=== PATIENT | female | born 1935 | race Caucasian/White ===

== ENCOUNTER 2021-11-11 09:03 | Day surgery (SDC) | payer MEDICARE ==
[2021-11-11] VITALS (11 sets, daily range): BP systolic 95–121; BP diastolic 51–85
[~2021-11-11] VITALS: Ht 152.4 cm; Wt 61.4 kg
[~2021-11-11 09:03] MED LIST: CLIN-91 PO; DEC4T PO; HYDR12.597 PO; OMEP40CA21 PO; POTA-188 PO; SYN0.088T PO; [UNRECOGNIZED DRUG - CODE] PO
[2021-11-11] MEDS ORDERED: cefazolin/dext.iso 2gm/50ml 50 ML IV ONE (09:30)
[2021-11-11] MEDS ORDERED: normal saline 1000ml 1,000 ML IV SCH (09:30)
[2021-11-11] MEDS ORDERED: LIDOcaine 1% w/EPI 1:100,000 30ml vial (MDV) ONE (09:32)
[2021-11-11] MEDS ORDERED: fentaNYL/PF 50MCG/1 ML 2ML syringe ONE (09:32)
[2021-11-11] MEDS ORDERED: ceFAZolin 1000mg inj ONE (09:32)
[2021-11-11] MEDS ORDERED: midazolam 1 mg/ML 2ml injection ONE ×2 (09:32→12:10)
[2021-11-11] MEDS ORDERED: POTA-205 PO (10:35)
[2021-11-11] MEDS ORDERED: PANT-47 PO (10:35)
[2021-11-11] MEDS ORDERED: OXYC1TAB17 PO (10:35)
[2021-11-11] MEDS ORDERED: CLOP75TA34 PO (10:35)
[2021-11-11] MEDS ORDERED: LEVO50TA PO (10:35)
[2021-11-11] MEDS ORDERED: TRIA1CAP6 PO (10:35)
[2021-11-11] MEDS ORDERED: FURO20TA4 PO (10:35)
[2021-11-11] MEDS ORDERED: ZOLP5TAB8 PO (10:35)
[2021-11-11] MEDS ORDERED: DILT-102 PO (10:35)
[2021-11-11] MEDS ORDERED: DIPH-522 PO (10:35)
[2021-11-11] MEDS ORDERED: ASPI-1265 PO (10:35)
[2021-11-11] MEDS ORDERED: HYDROcodone/acetaminophen 5mg/325mg tablet PO PRN (13:45)
[2021-11-11] MEDS ORDERED: HYDROcodone/acetaminophen 10/325mg tab PO PRN (13:45)
[2021-11-11] MEDS ORDERED: clindamycin 600mg/D5W 50ml IVPB IV SCH (16:00)
== END 2021-11-11 18:30 | disposition home or self-care (01) ==
LOC: SSTAY O 09:03
PROVIDERS: ATTEND Internal Medicine Cardiovascular Disease
DX: I49.5 Sick sinus syndrome (principal); I48.0 Paroxysmal atrial fibrillation; I25.10 Atherosclerotic heart disease of native coronary artery without angina pectoris; I25.2 Old myocardial infarction; K21.9 Gastro-esophageal reflux disease without esophagitis; I36.1 Nonrheumatic tricuspid (valve) insufficiency; Z79.82 Long term (current) use of aspirin; Z79.899 Other long term (current) drug therapy; Z85.3 Personal history of malignant neoplasm of breast; Z98.41 Cataract extraction status, right eye; Z98.42 Cataract extraction status, left eye; Z98.890 Other specified postprocedural states; Z88.5 Allergy status to narcotic agent; Z88.2 Allergy status to sulfonamides; Z88.8 Allergy status to other drugs, medicaments and biological substances; Z80.9 Family history of malignant neoplasm, unspecified
CPT/HCPCS: 33208; 71046; 93005; 99152; 99153; C1785; C1894; C1898; J0690; J2250; J3010; J3490; J7030; A4565; A4620; A6258